=== PATIENT | male | born 1990 | race Caucasian/White ===

== ENCOUNTER 2019-07-28 18:17 | Emergency (ER) | payer SELFPAY ==
--- NOTE | 2019-07-28 18:40 | ED ---
Upper Extremity Pain - HPI Summary HPI Summary: Patient states he woke up Sunday morning unable to extend fingers of right hand. Denies trauma. Denies prior history of same. Patient able to extend wrist but not fingers. States only mild improvement since Sunday. Denies any other pain, injury or symptoms. 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 Medical history is none. - History of Current Complaint Chief Complaint: EDGeneral Stated Complaint: RIGHT HAND PAIN WONT OPEN ALL WAY PER PT Time Seen by Provider: 07/28/19 18:29 Hx Obtained From: Patient Mechanism Of Injury: Other Onset/Duration: Started Days Ago Timing: Constant Severity Initially: Moderate Severity Currently: Moderate Pain Location: Finger Aggravating Factor(s): Nothing Alleviating Factor(s): Nothing Associated Signs & Symptoms: Positive: Negative - Allergies/Home Medications Allergies/Adverse Reactions: Allergies Allergy/AdvReac Type Severity Reaction Status Date / Time No Known Allergies Allergy Verified 07/28/19 18:21 Home Medications: Home Medications NK [No Home Medications Reported] 07/28/19 [History Confirmed 07/28/19] PMH/Surg Hx/FS Hx/Imm Hx Endocrine/Hematology History: Denies: Hx Anticoagulant Therapy Cardiovascular History: Denies: Hx Pacemaker/ICD History: Denies: Hx Dialysis Sensory History: Denies: Hx Glaucoma Opthamlomology History: Denies: Hx Legally Blind EENT History: Denies: Hx Deafness Neurological History: Denies: Hx Dementia Infectious Disease History: No Infectious Disease History: Denies: Traveled Outside the [place] in Last 30 Days - Social History Alcohol Use: Occasionally Substance Use Type: Reports: None Hx Tobacco Use: Yes Smoking Status (MU): Former Smoker Type: Cigarettes Review of Systems Constitutional: Negative Eyes: Negative ENT: Negative Cardiovascular: Negative Respiratory: Negative Gastrointestinal: Negative Genitourinary: Negative Musculoskeletal: Other Skin: Negative Neurological: Negative Psychological: Normal All Other Systems Reviewed And Are Negative: Yes Physical Exam - Summary Physical Exam Summary: Strength normal. Patient able to extend right wrist. Sensation intact on all fingers of right hand. Patient unable to extend second through fifth digits of right hand. Pulses and sensation intact. Triage Information Reviewed: Yes Vital Signs On Initial Exam: Initial Vitals Temp Pulse Resp BP Pulse Ox 97.5 F 94 19 117/99 97 07/28/19 18:19 07/28/19 18:19 07/28/19 18:19 07/28/19 18:19 07/28/19 18:19 Vital Signs Reviewed: Yes Appearance: Positive: Well-Appearing Skin: Positive: Warm Head/Face: Positive: Normal Head/Face Inspection Eyes: Positive: Normal Neck: Positive: Supple Respiratory/Lung Sounds: Positive: Clear to Auscultation Cardiovascular: Positive: Normal Abdomen Description: Positive: Nontender Musculoskeletal: Positive: Normal Neurological: Positive: Normal Psychiatric: Positive: Normal AVPU Assessment: Alert - [place] Coma Scale Best Eye Response: 4 - Spontaneous Best Motor Response: 6 - Obeys Commands Best Verbal Response: 5 - Oriented Coma Scale Total: 15 Procedures - Sedation Patient Received Moderate/Deep Sedation with Procedure: No Diagnostics - Vital Signs Vital Signs Temp Pulse Resp BP Pulse Ox 07/28/19 18:19 97.5 F 94 19 117/99 97 - Laboratory Lab Statement: Any lab studies that have been ordered have been reviewed, and results considered in the medical decision making process. Course/Dx - Course Course Of Treatment: Patient states he woke up Sunday morning unable to extend fingers of right hand. Denies trauma. Denies prior history of same. Patient able to extend wrist but not fingers. States only mild improvement since Sunday. Denies any other pain, injury or symptoms. 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 Medical history is none. Vital signs within normal limits. Patient has wrist brace at home. - Diagnoses Provider Diagnoses: Sunday night palsy Discharge ED - Sign-Out/Discharge Documenting (check all that apply): Patient Departure - Discharge Plan Condition: Stable Disposition: HOME Patient Education Materials: Radial Nerve Palsy (ED) Referrals: No Primary Care Phys,NOPCP [Primary Care Provider] - Tyrone Solis MD [Medical Doctor] - Additional Instructions: Were brace over right wrist. Do PT with right hand to help recovery. If symptoms do not improve follow-up with orthopedics Dr. Solis for further evaluation. - Billing Disposition and Condition Condition: STABLE Disposition: Home - Attestation Statements Provider Attestation: I was available for consultation for this patient. I did not evaluate the patient, or participate in any medical decision making or disposition decisions unless I am specifically named in the chart as having consulted on the patient. If I have consulted on the patient, please see my own ED note on the patient encounter. Carla Sanchez MD
[2019-07-28 20:52] VITALS: BP 122/85
== END 2019-07-28 19:24 | disposition home or self-care (01) ==
LOC: ED 18:17
DX: G56.31 Lesion of radial nerve, right upper limb (principal); Z87.891 Personal history of nicotine dependence
CPT/HCPCS: 99282